=== PATIENT | female | born 1945 | race Caucasian/White ===

== ENCOUNTER 2023-07-25 12:05 | Emergency (ER) | payer MEDICARE, BC, SELFPAY ==
[2023-07-25 12:11] VITALS: BP 194/85; PULSE 86; RESP 16; TEMP 37.3; O2SAT 99
--- NOTE | 2023-07-25 13:09 | ED.SKABFB ---
HPI - Skin/Abscess/Foreign Bdy <Sari Fleming PA-C - Last Filed: 07/25/23 19:32> General Chief complaint: Skin/Abscess/Foreign Body Stated complaint: vaginal growth/bleeding/states hemophyliac Time Seen by Provider: 07/25/23 12:12 Source: patient Mode of arrival: Ambulatory History of Present Illness HPI narrative: 77-year-old female with history of diabetes well controlled, and hemophilia factor 8, who presents for evaluation of painful swelling on her left vaginal area. She 1st noted a small lesion on the left labia approximately 1 month ago. She has been cleaning with surgical soap every day. She says it has continued to grow and become more and more painful over the last several weeks. Last night she reports spontaneous drainage from the area and with some mild serosanguineous fluid. Around the same time she noticed a small rash around her belly button that has grown in circumference. It is scaly and red and slightly itchy. She has been putting several different types of ointment on it from an antifungal to hydrocortisone to regular emollient. Patient denies fever chills chest pain belly pain or lower extremity pain. She has had no vaginal discharge. She reports hysterectomy with 1 remaining ovary. Patient also describes a history of what sounds like a perirectal abscess 6 years ago for which she was taken to the OR for I and D. she reports precautions taken for her hemophilia. Related Data Previous Rx's Medication Instructions Recorded doxycycline hyclate 100 mg capsule 100 mg PO BID #14 caps 07/25/23 Allergies Allergy/AdvReac Type Severity Reaction Status Date / Time adhesive tape Allergy Verified 07/25/23 12:23 Penicillins Allergy Verified 07/25/23 12:23 Review of Systems <Sari Fleming PA-C - Last Filed: 07/25/23 19:32> Review of Systems ROS Unobtainable: All systems reviewed & are unremarkable except as noted in HPI and below Patient History <Sari Fleming PA-C - Last Filed: 07/25/23 19:32> Social History Smoking Status: Never smoker Smoking Status: Never smoker Substance Use Type: does not use Exam <Sari Fleming PA-C - Last Filed: 07/25/23 19:32> Narrative Exam Narrative: Abdomen: Soft and nontender slightly distended. There is a quarter-sized red scaly rash just below her umbilicus. : Left labia with firm tender and fluctuant swelling approximately 2 x 3 cm located at the in inferior external labia. There is a central scab that appears to have been draining. Remainder of external vaginal exam unremarkable. Initial Vital Signs Initial Vital Signs: Vital Signs Temperature 99.1 F 07/25/23 12:11 Pulse Rate 86 07/25/23 12:11 Respiratory Rate 16 07/25/23 12:11 Blood Pressure 194/85 H 07/25/23 12:11 Pulse Oximetry 99 07/25/23 12:11 Oxygen Delivery Method Room Air 07/25/23 12:11 <Swetha Velazquez DO - Last Filed: 07/26/23 07:17> Initial Vital Signs Initial Vital Signs: Vital Signs Temperature 99.1 F 07/25/23 12:11 Pulse Rate 86 07/25/23 12:11 Respiratory Rate 16 07/25/23 12:11 Blood Pressure 194/85 H 07/25/23 12:11 Pulse Oximetry 99 07/25/23 12:11 Oxygen Delivery Method Room Air 07/25/23 12:11 Course <Sari Fleming PA-C - Last Filed: 07/25/23 19:32> Orders Ordered: Discontinued Medications Acetaminophen (Acetaminophen 325 Mg Tablet) 650 mg PO NOW ONE Stop: 07/25/23 13:06 Last Admin: 07/25/23 13:45 Dose: 650 mg Documented By: MAXIM Lidocaine HCl (Lidocaine 1% (Pf) 5 Ml) 5 ml INJ NOW ONE Stop: 07/25/23 13:41 Last Admin: 07/25/23 14:37 Dose: 5 ml Documented By: MAXIM Vital Signs Vital signs: Vital Signs - 8 hr 07/25/23 12:11 07/25/23 15:32 Temperature 99.1 F Pulse Rate 86 85 Respiratory Rate 16 Blood Pressure 194/85 H 147/69 H Pulse Oximetry 99 97 Oxygen Delivery Method Room Air Room Air <Swetha Velazquez DO - Last Filed: 07/26/23 07:17> Orders Ordered: Discontinued Medications Acetaminophen (Acetaminophen 325 Mg Tablet) 650 mg PO NOW ONE Stop: 07/25/23 13:06 Last Admin: 07/25/23 13:45 Dose: 650 mg Documented By: MAXIM Lidocaine HCl (Lidocaine 1% (Pf) 5 Ml) 5 ml INJ NOW ONE Stop: 07/25/23 13:41 Last Admin: 07/25/23 14:37 Dose: 5 ml Documented By: MAXIM Vital Signs Vital signs: Vital Signs - 8 hr 07/25/23 12:11 07/25/23 15:32 Temperature 99.1 F Pulse Rate 86 85 Respiratory Rate 16 Blood Pressure 194/85 H 147/69 H Pulse Oximetry 99 97 Oxygen Delivery Method Room Air Room Air MDM - Skin/Abscess/Foreign Bdy <Sari Fleming PA-C - Last Filed: 07/25/23 19:32> Lab Data 07/25/23 14:50 07/25/23 14:50 Labs: Lab Results 07/25/23 07/25/23 Range/Units 13:16 14:50 WBC 9.9 (4.5-11.0) X10^3/uL RBC 3.80 L (4.0-5.2) X10^6/uL Hgb 11.5 L (12.0-16.0) g/dL Hct 33.6 L (36-46) % MCV 88.5 (80-100) fL MCH 30.4 (26-34) PG MCHC 34.4 (30-36) % RDW 13.3 (11.6-14.8) % Plt Count 316 (150-400) X10^3/uL Neut % (Auto) 77.5 H (50-75) % Lymph % (Auto) 13.0 L (25-40) % [place] % (Auto) 6.7 (3-14) % Eos % (Auto) 2.2 (2-4) % Baso % (Auto) 0.6 (0-2) % Neut # (Auto) 7600 H (5976-1278) /uL Lymph # (Auto) 1300 (3039-5664) /uL [place] # (Auto) 700 (0-900) /uL Eos # (Auto) 200 (0-450) /uL Baso # (Auto) 100 (0-100) /uL Sodium 138 (137-145) mmol/L Potassium 3.6 (3.4-5.1) mmol/L Chloride 101 (98-107) mmol/L Carbon Dioxide 28 (22-32) mmol/L BUN 35 H (7-17) mg/dL Creatinine 0.76 (0.52-1.04) mg/dL Estimated GFR > 60 (>60) mL/min BUN/Creatinine Ratio 46.1 H (6-22) Glucose 215 H (80-110) mg/dL Calcium 10.7 H (8.4-10.2) mg/dL Total Bilirubin 0.4 (0.2-1.3) mg/dL AST 21 (14-36) IU/L ALT 16 (<35) IU/L Alkaline Phosphatase 61 (38-126) U/L Total Protein 7.4 (6.3-8.2) g/dL Albumin 4.3 (3.5-5.0) g/dL Globulin 3.1 (1.7-4.1) g/dL Albumin/Globulin Ratio 1.4 (1.0-2.8) Urine Color Yellow Urine Appearance Sl cloudy Urine pH 5.0 (4.5-8.0) Ur Specific [place] 1.020 (1.000-1.035) Urine Protein Trace H (Negative) Urine Glucose (UA) 1+ H (Negative) g/dL Urine Ketones 1+ H (NEGATIVE) Urine Occult Blood 3+ H (Negative) Urine Nitrate Negative (Negative) Urine Bilirubin Negative (NEGATIVE) Urine Urobilinogen 0.2 (0.2) E.U./dL Ur Leukocyte Esterase Trace H (NEGATIVE) Urine RBC 30-100/hpf H (0-5/HPF) Urine WBC 1-5/hpf (0-5/HPF) Ur Squamous Epith Cells 1-5 /hpf (0-5/HPF) Uric Acid Crystals Moderate H (None) Urine Bacteria Few (2-10) H (None) Ur Culture Indicated? Specimen cultured Point of Care Testing Glucose POC 257 Urine Dip Bedside Urine Glucose 500 mg/dl Bedside Urine Bilirubin - Negative Bedside Urine Ketone + 15 Urine Specific [place] 1.015 Bedside Urine Occult Blood +++ Bedside Urine pH 6.0 Bedside Urine Protein +/- 15 Bedside Urine Urobilinogen - Negative Bedside Urine Nitrite - Negative Bedside Urine Leukocytes +/- 15 Esterase MDM Narrative Medical decision making narrative: Because the patient expresses high anxiety over our recommendation that she have an incision and drainage here in the ER due to her history of hemophilia, speaking with Dr. Velazquez it was decided that we would give her the option to do Sitz baths at home warm compresses and oral antibiotics. The patient agrees with this plan. It was stressed that it is very possible, especially given her diabetes, that the abscess will get worse and not drain on its own and if that is the case she should return to the emergency department for incision and drainage. <Swetha Velazquez, - Last Filed: 07/26/23 07:17> Lab Data Labs: Lab Results 07/25/23 07/25/23 Range/Units 13:16 14:50 WBC 9.9 (4.5-11.0) X10^3/uL RBC 3.80 L (4.0-5.2) X10^6/uL Hgb 11.5 L (12.0-16.0) g/dL Hct 33.6 L (36-46) % MCV 88.5 (80-100) fL MCH 30.4 (26-34) PG MCHC 34.4 (30-36) % RDW 13.3 (11.6-14.8) % Plt Count 316 (150-400) X10^3/uL Neut % (Auto) 77.5 H (50-75) % Lymph % (Auto) 13.0 L (25-40) % [place] % (Auto) 6.7 (3-14) % Eos % (Auto) 2.2 (2-4) % Baso % (Auto) 0.6 (0-2) % Neut # (Auto) 7600 H (1940-0227) /uL Lymph # (Auto) 1300 (4428-2295) /uL [place] # (Auto) 700 (0-900) /uL Eos # (Auto) 200 (0-450) /uL Baso # (Auto) 100 (0-100) /uL Sodium 138 (137-145) mmol/L Potassium 3.6 (3.4-5.1) mmol/L Chloride 101 (98-107) mmol/L Carbon Dioxide 28 (22-32) mmol/L BUN 35 H (7-17) mg/dL Creatinine 0.76 (0.52-1.04) mg/dL Estimated GFR > 60 (>60) mL/min BUN/Creatinine Ratio 46.1 H (6-22) Glucose 215 H (80-110) mg/dL Calcium 10.7 H (8.4-10.2) mg/dL Total Bilirubin 0.4 (0.2-1.3) mg/dL AST 21 (14-36) IU/L ALT 16 (<35) IU/L Alkaline Phosphatase 61 (38-126) U/L Total Protein 7.4 (6.3-8.2) g/dL Albumin 4.3 (3.5-5.0) g/dL Globulin 3.1 (1.7-4.1) g/dL Albumin/Globulin Ratio 1.4 (1.0-2.8) Urine Color Yellow Urine Appearance Sl cloudy Urine pH 5.0 (4.5-8.0) Ur Specific [place] 1.020 (1.000-1.035) Urine Protein Trace H (Negative) Urine Glucose (UA) 1+ H (Negative) g/dL Urine Ketones 1+ H (NEGATIVE) Urine Occult Blood 3+ H (Negative) Urine Nitrate Negative (Negative) Urine Bilirubin Negative (NEGATIVE) Urine Urobilinogen 0.2 (0.2) E.U./dL Ur Leukocyte Esterase Trace H (NEGATIVE) Urine RBC 30-100/hpf H (0-5/HPF) Urine WBC 1-5/hpf (0-5/HPF) Ur Squamous Epith Cells 1-5 /hpf (0-5/HPF) Uric Acid Crystals Moderate H (None) Urine Bacteria Few (2-10) H (None) Ur Culture Indicated? Specimen cultured Point of Care Testing Glucose POC 257 Urine Dip Bedside Urine Glucose 500 mg/dl Bedside Urine Bilirubin - Negative Bedside Urine Ketone + 15 Urine Specific [place] 1.015 Bedside Urine Occult Blood +++ Bedside Urine pH 6.0 Bedside Urine Protein +/- 15 Bedside Urine Urobilinogen - Negative Bedside Urine Nitrite - Negative Bedside Urine Leukocytes +/- 15 Esterase Discharge Plan Departure Patient Disposition: Home Clinical Impression: Abscess of skin or subcutaneous tissue Qualifiers: Site of cutaneous abscess: other site Qualified Code(s): L02.818 - Cutaneous abscess of other sites Instructions: DI for Skin Abscess Activity Restrictions/Additional Instructions: You have a significant labial abscess with evidence of spontaneous drainage. It is our recommendation that you have an incision to drain the infection, however respecting your concerns for bleeding risk we agreed that it is okay for you to try home care. Sit in a warm bath for 20 minutes 2-3 times daily. Apply moist warm compress directly to the area for 20 minutes every 1-2 hours. Take 1 week of antibiotics starting today with an additional dose tonight been twice a day daily until gone. If the area continues to grow in size pain in and is not draining you need to return to emergency center for drainage. Prescriptions: New doxycycline hyclate 100 mg capsule 100 mg PO BID Qty: 14 0RF Stand Alone Forms: Patient Portal/API ED Sign-out <Swetha Velazquez, - Last Filed: 07/26/23 07:17> Cosign ED Attending Cosignature Attestation: Patient seen evaluated by myself patient quite anxious she is has history of hemophilia. She is unable to sit she is low-grade fever on exam she has a left perineal abscess with fluctuation in mild draining with surrounding erythema. It does not involve the labia is not a Bartholin cyst. She is low-grade temp no leukocytosis electrolytes are stable no anemia. Definitely would benefit from incision and drainage. Strongly encouraged patient to have it drained. However she was quite now rest due to her hemophilia she is had complications previously. She declined incision and drainage encourage Sitz baths and antibiotics return as needed. I was immediately available in the department for consultation. Documentation has been reviewed.
[2023-07-25 13:24] LABS: Appearance Urine UA SL CLOUDY; Bilirubin Urine UA NEGATIVE (NEGATIVE); Color Urine UA YELLOW; Glucose Urine UA 1+ g/dL (Negative); Ketones Urine UA 1+ (NEGATIVE); Leukocyte Esterase Urine UA TRACE (NEGATIVE); Nitrite Urine UA NEGATIVE (Negative); Occult Blood Urine UA 3+ (Negative); Protein Urine UA TRACE (Negative); Urobilinogen Urine UA 0.2 E.U./dL (0.2)
[2023-07-25] MEDS: ACETAMINOPHEN 325 MG TABLET 650 MG PO (13:45)
--- NOTE | 2023-07-25 14:34 | PC.NURSE ---
providers at bedside
[2023-07-25] MEDS: LIDOCAINE 1% (PF) 5 ML INJ (14:37)
--- NOTE | 2023-07-25 14:41 | PC.NURSE ---
provider procedure complete; lab called for lab draw
[2023-07-25 15:00] LABS: Add Manual Diff / Slide Review NO; Basophils Absolute Auto 100 /uL (0-100); Basophils Percent Auto 0.6 % (0-2); Eosinophils Absolute Auto 200 /uL (0-450); Eosinophils Percent Auto 2.2 % (2-4); Hematocrit 33.6 % (36-46); Hemoglobin 11.5 g/dL (12.0-16.0); Lymphocytes Absolute Auto 1300 /uL (1100-4500); Mean Corpuscular HGB Conc 34.4 % (30-36); Mean Corpuscular Hemoglobin 30.4 PG (26-34); Mean Corpuscular Volume 88.5 fL (80-100); Monocytes Absolute Auto 700 /uL (0-900); Monocytes Percent Auto 6.7 % (3-14); Neutrophils Absolute Auto 7600 /uL (1500-7000); Neutrophils Percent Auto 77.5 % (50-75); Platelet Count 316 X10^3/uL (150-400); Red Cell Distribution Width 13.3 % (11.6-14.8); White Blood Cell Count 9.9 X10^3/uL (4.5-11.0)
[2023-07-25 15:15] LABS: Alanine Aminotransferase 16 IU/L (<35); Albumin 4.3 g/dL (3.5-5.0); Albumin Globulin Ratio 1.4 (1.0-2.8); Alkaline Phosphatase 61 U/L (38-126); Aspartate Aminotransferase 21 IU/L (14-36); BUN Creatinine Ratio 46.1 (6-22); Bilirubin Total 0.4 mg/dL (0.2-1.3); Blood Urea Nitrogen 35 mg/dL (7-17); Calcium 10.7 mg/dL (8.4-10.2); Carbon Dioxide 28 mmol/L (22-32); Chloride 101 mmol/L (98-107); Estimated Glomerular Filt Rate > 60 mL/min (>60); Globulin 3.1 g/dL (1.7-4.1); Glucose 215 mg/dL (80-110); HEMOLYSIS < 15 (0-50); Potassium 3.6 mmol/L (3.4-5.1); Sodium 138 mmol/L (137-145); Total Protein 7.4 g/dL (6.3-8.2)
[2023-07-25 15:32] VITALS: BP 147/69; PULSE 85; O2SAT 97
[2023-07-25 20:08] LABS: Bacteria Urine Few (2-10); Culture Indicated Urine Specimen Cultured; RBC Urine 30-100/HPF (0-5/HPF); Squamous Epithelial Cell Urine 1-5 /HPF (0-5/HPF); Uric Acid Crystals Urine Moderate; WBC Urine 1-5/HPF (0-5/HPF)
== END 2023-07-25 15:40 | disposition home or self-care (01) ==
PROVIDERS: Emergency Medicine; Emergency Provider Physician Assistant
DX: N76.4 Abscess of vulva (principal)
CPT/HCPCS: 80053; 81003; 81015; 82962; 85025; 87077; 87086; 87186; 99283

== ENCOUNTER → 2024-04-08 12:10 | Outpatient (ROUT) | payer MEDICARE, BC, SELFPAY | PROVIDERS: Visit Provider Dermatology | DX: L01.01 Non-bullous impetigo (principal) | CPT/HCPCS: 87070; 87075; 87205 ==

== ENCOUNTER → 2025-08-05 14:29 | Outpatient (CLI) | payer MEDICARE, BC, SELFPAY ==
[2025-08-05 15:48] LABS: Blood Urea Nitrogen 37 mg/dL (7-17); Calcium 11.0 mg/dL (8.4-10.2); Carbon Dioxide 28 mmol/L (22-32); Chloride 100 mmol/L (98-107); Estimated Glomerular Filt Rate 42 mL/min (>60); Glucose 183 mg/dL (70-99); HEMOLYSIS < 15 (0-50); Potassium 3.9 mmol/L (3.4-5.1); Sodium 140 mmol/L (137-145)
== END ==
DX: E11.65 Type 2 diabetes mellitus with hyperglycemia (principal)
CPT/HCPCS: 36415; 80048